=== PATIENT | female | born 1960 | race African-American/Black ===

== ENCOUNTER 2019-03-16 11:52 | Inpatient (IN) | payer MEDICAID ==
[~2019-03-16] VITALS: Ht 162.6 cm; Wt 88.9 kg
[~2019-03-16 11:52] MED LIST: ARNUITY; ASPI-986 PO; DILT60TA35 PO; FAMO-135 PO; GLIP5TAB12 MT; HYDR-4133 PO; INSU100I28 SQ; LORA10CA PO; LOSA50TA3 PO; METF-416 MT; PROXETINE PO; RISP2TAB22 MT; SIMV20TA6 MT; TRAZ150T78 MT; [UNRECOGNIZED DRUG - OTHER] INH
[2019-03-16] MEDS ORDERED: ALBUTEROL (0.083%) 2.5MG/3ML NEB HHN STA (12:18)
[2019-03-16] MEDS ORDERED: METHYLPREDNISOLONE SOD SUCC 125 MG/2 ML VIAL IV STA (12:18)
[2019-03-16 14:07] LABS: HEMATOCRIT. 39.3 % (36.0-48.0); HEMOGLOBIN. 13.2 g/dL (12.0-16.0); MEAN CORPUSCULAR HEMOGLOBIN 31.3 pg (28.0-32.0); MEAN CORPUSCULAR VOLUME 92.8 fL (81.0-99.0); RED BLOOD CELL COUNT 4.24 mill/uL (4.2-5.4); RED CELL DISTRIBUTION WIDTH 14.3 % (11.6-14.6)
[2019-03-16 14:17] LABS: CHLORIDE 106 mEq/L (98-107)
[2019-03-16] MEDS ORDERED: ALBUTEROL (0.083%) 2.5MG/3ML NEB HHN ONE (15:30)
[2019-03-16 15:57] LABS: MEAN PLATELET VOLUME 10.7 fl (7.4-10.4); PLATELET 140 x1000/uL (130-400)
[2019-03-16 16:00] LABS: PLATELET ESTIMATE NORMAL
[2019-03-16 20:35] VITALS: BP 183/75
[2019-03-16] MEDS ORDERED: B50 MT (21:50)
[2019-03-16] MEDS ORDERED: DOCUSATE SODIUM 100MG CAPSULE PO PRN (22:00)
[2019-03-16] MEDS ORDERED: MAGNESIUM/ALUMINUM HYDROXIDE/SIMETHICONE 30ML UDC PO PRN (22:00)
[2019-03-16] MEDS ORDERED: IPRATROPIUM/ALBUTEROL 0.5-3(2.5)MG/3ML NEB NEB PRN (22:00)
[2019-03-16] MEDS ORDERED: HYDRALAZINE 20MG/ML VIAL IV PRN (22:00)
[2019-03-16] MEDS ORDERED: HYDROCODONE/ACETAMINOPHEN 5/325MG TABLET PO PRN (22:00)
[2019-03-16] MEDS ORDERED: METHYLPREDNISOLONE SOD SUCC 40 MG/ML VIAL IV SCH (22:00)
[2019-03-16] MEDS ORDERED: ONDANSETRON HCL 4MG/2ML INJ IV PRN (22:00)
[2019-03-16] MEDS ORDERED: DEXTROSE 50% WATER 50ML SYRINGE IV PRN (22:00)
[2019-03-16] MEDS ORDERED: ACETAMINOPHEN 325MG TABLET PO PRN (22:00)
[2019-03-16] MEDS ORDERED: CLONIDINE 0.1MG TABLET PO PRN (22:00)
[2019-03-16] MEDS: GUAIFENESIN 200MG/10ML SUGAR FREE UDC PO PRN (22:04)
[2019-03-16] MEDS: OMEPRAZOLE 20MG CAPSULE EXTENDED RELEASE PO SCH (22:04)
[2019-03-16 22:32] LABS: BG BASE EXCESS 2.3 mmol/L (-2.0-2.0); BG CARBOXYHEMOGLOBIN 1.8 % (0.5-1.5); BG DEOXYHEMOGLOBIN 6.5 % (0.0-5.0); BG FRACTION INSPIRED OXYGEN 36; BG METHEMOGLOBIN 0.2 % (0.0-1.5); BG OXYGEN SATURATION 93.4 % (92.0-98.5); BG OXYHEMOGLOBIN 91.5 % (94.0-97.0); BG PCO2 60.1 mmHg (35.0-45.0); BG PH 7.316 (7.350-7.450); BG PO2 71.3 mmHg (75.0-100.0); BG SAMPLE SITE RIGHT RADIAL; BG TOTAL HEMOGLOBIN 13.8 g/dL (12.0-18.0); BG VENT MODE NASAL CANNULA
[2019-03-16 23:00] VITALS: BP 167/101
[2019-03-17] VITALS (12 sets, daily range): BP systolic 91–144; BP diastolic 61–99
[2019-03-17 00:29] LABS: CHLORIDE 103 mEq/L (98-107)
[2019-03-17] MEDS: ENOXAPARIN 40MG/0.4ML SYR SUBCUT SCH ×2 (00:29→21:02)
[2019-03-17 00:38] LABS: CREATINE KINASE 188 IU/L (26-192)
[2019-03-17 00:40] LABS: CREATINE KINASE MB FRACTION 1.3 ng/mL (0.5-3.6)
[2019-03-17] MEDS: IPRATROPIUM/ALBUTEROL 0.5-3(2.5)MG/3ML NEB NEB SCH ×6 (00:56→20:13)
[2019-03-17] MEDS: BLOOD SUGAR DIAGNOSTIC STRIP TEST SCH ×4 (07:34→21:27)
[2019-03-17 08:31] LABS: HEMATOCRIT. 37.4 % (36.0-48.0); HEMOGLOBIN. 12.4 g/dL (12.0-16.0); MEAN CORPUSCULAR HEMOGLOBIN 30.5 pg (28.0-32.0); MEAN CORPUSCULAR VOLUME 92.2 fL (81.0-99.0); MEAN PLATELET VOLUME 10.4 fl (7.4-10.4); PLATELET 168 x1000/uL (130-400); RED BLOOD CELL COUNT 4.06 mill/uL (4.2-5.4); RED CELL DISTRIBUTION WIDTH 13.9 % (11.6-14.6)
[2019-03-17 09:04] LABS: LDL CHOLESTEROL 68 mg/dL (5-100)
[2019-03-17] MEDS: OMEPRAZOLE 20MG CAPSULE EXTENDED RELEASE PO SCH (09:04)
[2019-03-17] MEDS: INSULIN LISPRO 100 UNITS/ML SUBCUT SCH ×4 (09:05→21:48)
[2019-03-17 09:06] LABS: CREATINE KINASE 153 IU/L (26-192)
[2019-03-17 09:07] LABS: HDL CHOLESTEROL 57 mg/dL (40-59)
[2019-03-17 09:09] LABS: CREATINE KINASE MB FRACTION 1.1 ng/mL (0.5-3.6)
[2019-03-17 11:21] LABS: BG BASE EXCESS 5.2 mmol/L (-2.0-2.0); BG BILEVEL POS AIRWAY PRESSURE 15/5; BG CARBOXYHEMOGLOBIN 0.6 % (0.5-1.5); BG DEOXYHEMOGLOBIN 2.6 % (0.0-5.0); BG FRACTION INSPIRED OXYGEN 50; BG HCO3 ACT 33.4 mmol/L (22.0-26.0); BG METHEMOGLOBIN 0.2 % (0.0-1.5); BG OXYGEN SATURATION 97.4 % (92.0-98.5); BG OXYHEMOGLOBIN 96.6 % (94.0-97.0); BG PCO2 67.5 mmHg (35.0-45.0); BG PH 7.312 (7.350-7.450); BG PO2 112.9 mmHg (75.0-100.0); BG SAMPLE SITE RIGHT RADIAL; BG TOTAL HEMOGLOBIN 12.7 g/dL (12.0-18.0); BG VENT MODE MASK - BIPAP
[2019-03-17] MEDS ORDERED: TERBUTALINE SULFATE 1MG/ML VIAL SUBCUT NR (12:20)
[2019-03-17] MEDS: METHYLPREDNISOLONE SOD SUCC 125 MG/2 ML VIAL IV SCH ×2 (12:51→17:46)
[2019-03-17] MEDS ORDERED: NICOTINE 21MG PATCH TD NR (13:00)
[2019-03-17] MEDS: FLUTICASONE PROPIONATE 50MCG/SPRAY BOTTLE BOTHNSTRLS SCH ×2 (13:52→21:01)
[2019-03-17 16:20] LABS: CLARITY URINE CLOUDY (CLEAR); COLOR URINE YELLOW (YELLOW); KETONES URINE 1+ (NEGATIVE); LEUKOCYTE ESTERASE URINE NEGATIVE (NEGATIVE); NITRITE URINE NEGATIVE (NEGATIVE); OCCULT BLOOD URINE NEGATIVE (NEGATIVE); PH URINE 5.5 (4.5-8.0); PROTEIN URINE NEGATIVE (NEGATIVE); SPECIFIC GRAVITY URINE 1.024 (1.005-1.030)
[2019-03-17 16:31] LABS: *AMPHETAMINES SCREEN URINE NEGATIVE (NEGATIVE)
[2019-03-17 16:32] LABS: *BARBITURATES SCREEN URINE NEGATIVE (NEGATIVE); *BENZODIAZEPINES SCREEN URINE NEGATIVE (NEGATIVE); *COCAINE SCREEN URINE NEGATIVE (NEGATIVE); METHADONE URINE SCREEN NEGATIVE (NEGATIVE); OPIATES URINE SCREEN NEGATIVE (NEGATIVE); PHENCYCLIDINE URINE SCREEN NEGATIVE (NEGATIVE)
[2019-03-17 16:33] LABS: CANNABINOID URINE SCREEN NEGATIVE (NEGATIVE)
[2019-03-17] MEDS: MONTELUKAST SODIUM 10MG TABLET PO SCH (17:46)
[2019-03-17] MEDS: GUAIFENESIN 200MG/10ML SUGAR FREE UDC PO PRN (21:03)
[2019-03-17 22:58] LABS: PLATELET ESTIMATE NORMAL
[2019-03-18] VITALS (12 sets, daily range): BP systolic 120–153; BP diastolic 60–80
[2019-03-18] MEDS: IPRATROPIUM/ALBUTEROL 0.5-3(2.5)MG/3ML NEB NEB SCH ×7 (00:19→23:58)
[2019-03-18] MEDS: METHYLPREDNISOLONE SOD SUCC 125 MG/2 ML VIAL IV SCH ×4 (00:37→17:48)
[2019-03-18] MEDS: INSULIN LISPRO 100 UNITS/ML SUBCUT SCH ×4 (06:15→22:19)
[2019-03-18 07:32] LABS: HEMATOCRIT. 37.1 % (36.0-48.0); HEMOGLOBIN. 12.3 g/dL (12.0-16.0); MEAN CORPUSCULAR HEMOGLOBIN 30.5 pg (28.0-32.0); MEAN CORPUSCULAR VOLUME 92.4 fL (81.0-99.0); MEAN PLATELET VOLUME 10.3 fl (7.4-10.4); PLATELET 160 x1000/uL (130-400); RED BLOOD CELL COUNT 4.01 mill/uL (4.2-5.4)
[2019-03-18] MEDS: BLOOD SUGAR DIAGNOSTIC STRIP TEST SCH ×4 (07:42→21:42)
[2019-03-18 07:43] LABS: CHLORIDE 99 mEq/L (98-107)
[2019-03-18] MEDS: OMEPRAZOLE 20MG CAPSULE EXTENDED RELEASE PO SCH (07:46)
[2019-03-18] MEDS: NICOTINE 21MG PATCH TD SCH (08:27)
[2019-03-18] MEDS: FLUTICASONE PROPIONATE 50MCG/SPRAY BOTTLE BOTHNSTRLS SCH ×2 (08:27→22:17)
[2019-03-18] MEDS: GUAIFENESIN 200MG/10ML SUGAR FREE UDC PO PRN (11:27)
[2019-03-18] MEDS ORDERED: INSULIN LISPRO 100 UNITS/ML SUBCUT SCH (12:30)
[2019-03-18 17:25] LABS: PLATELET ESTIMATE NORMAL
[2019-03-18] MEDS: MONTELUKAST SODIUM 10MG TABLET PO SCH (17:48)
[2019-03-18] MEDS: ENOXAPARIN 40MG/0.4ML SYR SUBCUT SCH (22:16)
[2019-03-18] MEDS: INSULIN GLARGINE UD 100 UNITS/ML SYR SUBCUT SCH (22:20)
[2019-03-19] VITALS (12 sets, daily range): BP systolic 124–164; BP diastolic 55–118
[2019-03-19] MEDS: METHYLPREDNISOLONE SOD SUCC 125 MG/2 ML VIAL IV SCH ×3 (00:18→12:29)
[2019-03-19] MEDS: IPRATROPIUM/ALBUTEROL 0.5-3(2.5)MG/3ML NEB NEB SCH ×6 (00:36→19:45)
[2019-03-19 06:21] LABS: HEMOGLOBIN. 12.1 g/dL (12.0-16.0); MEAN CORPUSCULAR HEMOGLOBIN 30.4 pg (28.0-32.0); MEAN CORPUSCULAR VOLUME 92.6 fL (81.0-99.0); MEAN PLATELET VOLUME 10.5 fl (7.4-10.4); PLATELET 156 x1000/uL (130-400); RED CELL DISTRIBUTION WIDTH 14.4 % (11.6-14.6)
[2019-03-19 06:24] LABS: CHLORIDE 99 mEq/L (98-107)
[2019-03-19] MEDS: BLOOD SUGAR DIAGNOSTIC STRIP TEST SCH ×4 (07:52→21:56)
[2019-03-19] MEDS: FAMOTIDINE 20MG TABLET PO SCH ×2 (08:34→21:49)
[2019-03-19] MEDS: FLUTICASONE PROPIONATE 50MCG/SPRAY BOTTLE BOTHNSTRLS SCH ×2 (08:34→21:49)
[2019-03-19] MEDS: NICOTINE 21MG PATCH TD SCH (08:34)
[2019-03-19] MEDS: INSULIN LISPRO 100 UNITS/ML SUBCUT SCH ×4 (08:36→21:00)
[2019-03-19 10:14] LABS: PLATELET ESTIMATE NORMAL
[2019-03-19] MEDS: INSULIN GLARGINE UD 100 UNITS/ML SYR SUBCUT SCH ×2 (10:42→21:56)
[2019-03-19] MEDS: GUAIFENESIN 200MG/10ML SUGAR FREE UDC PO PRN ×2 (13:17→22:53)
[2019-03-19] MEDS: MONTELUKAST SODIUM 10MG TABLET PO SCH (16:41)
[2019-03-19] MEDS: GUAIFENESIN 600MG ER TABLET PO SCH (16:41)
[2019-03-19] MEDS: ENOXAPARIN 40MG/0.4ML SYR SUBCUT SCH (21:50)
[2019-03-19] MEDS: METHYLPREDNISOLONE SOD SUCC 40 MG/ML VIAL IV SCH (21:50)
[2019-03-20] VITALS (11 sets, daily range): BP systolic 122–154; BP diastolic 66–109
[2019-03-20] MEDS: IPRATROPIUM/ALBUTEROL 0.5-3(2.5)MG/3ML NEB NEB SCH ×5 (00:36→17:10)
[2019-03-20] MEDS: METHYLPREDNISOLONE SOD SUCC 40 MG/ML VIAL IV SCH ×2 (05:21→13:07)
[2019-03-20] MEDS: GUAIFENESIN 200MG/10ML SUGAR FREE UDC PO PRN ×3 (06:39→17:10)
[2019-03-20] MEDS: INSULIN LISPRO 100 UNITS/ML SUBCUT SCH ×3 (08:00→17:12)
[2019-03-20] MEDS: BLOOD SUGAR DIAGNOSTIC STRIP TEST SCH ×3 (08:15→17:01)
[2019-03-20] MEDS: NICOTINE 21MG PATCH TD SCH (09:17)
[2019-03-20] MEDS: FAMOTIDINE 20MG TABLET PO SCH (09:17)
[2019-03-20] MEDS: FLUTICASONE PROPIONATE 50MCG/SPRAY BOTTLE BOTHNSTRLS SCH (09:17)
[2019-03-20] MEDS: GUAIFENESIN 600MG ER TABLET PO SCH (09:17)
[2019-03-20] MEDS: INSULIN GLARGINE UD 100 UNITS/ML SYR SUBCUT SCH (10:53)
[2019-03-20] MEDS ORDERED: ATROV INH (16:05)
[2019-03-20] MEDS ORDERED: NICO-682 TD (16:05)
[2019-03-20] MEDS ORDERED: FAMO20TA8 PO (16:05)
[2019-03-20] MEDS ORDERED: DEXTL MT (16:05)
[2019-03-20] MEDS ORDERED: FLUT1DIS2 INH (16:05)
[2019-03-20] MEDS ORDERED: PANT20TA3 MT (16:05)
[2019-03-20] MEDS ORDERED: MONT10TA21 PO (16:05)
[2019-03-20] MEDS ORDERED: ALBU18HF2 IH (16:05)
[2019-03-20] MEDS ORDERED: P20 MT (16:05)
[2019-03-20] MEDS: MONTELUKAST SODIUM 10MG TABLET PO SCH (17:10)
== END 2019-03-20 18:10 | disposition home or self-care (01) | DRG 140 ==
LOC: ER 12:18 → 5WST 17:30 → EDBEDREQ 17:31 → ENRESERV 18:14 → 5EST 22:45
PROVIDERS: ADMIT Internal Medicine; ATTEND Internal Medicine
DX: J44.1 Chronic obstructive pulmonary disease with (acute) exacerbation (principal); J96.00 Acute respiratory failure, unspecified whether with hypoxia or hypercapnia; E87.2 Acidosis; E11.9 Type 2 diabetes mellitus without complications; J00 Acute nasopharyngitis [common cold]; M19.90 Unspecified osteoarthritis, unspecified site; Z99.81 Dependence on supplemental oxygen; I10 Essential (primary) hypertension; I34.1 Nonrheumatic mitral (valve) prolapse; J40 Bronchitis, not specified as acute or chronic
CPT/HCPCS: 36415; 36600; 71045; 80048; 80061; 80305; 81003; 82375; 82550; 82553; 82805; 82962; 83735; 83880; 84443; 84484; 93005; 93970; 94640; 94660; 96374; 99285; J0360; J1650; J1815; J2920; J2930; J3105; J7611; J7620

== ENCOUNTER 2024-07-26 17:26 | Emergency (ER) | payer OTHER ==
[~2024-07-26] VITALS: Ht 167.6 cm; Wt 70.0 kg
[~2024-07-26 17:26] MED LIST changes: +ALBU18HF2 IH; -ARNUITY; +ATROV INH; +B50 MT; +DEXTL MT; +EMPA10TA PO; -FAMO-135 PO; +FAMO20TA8 PO; +FLUT1DIS2 INH; -GLIP5TAB12 MT; +HYDR-2988 PO; -HYDR-4133 PO; -LORA10CA PO; +LOSA-413 PO; -LOSA50TA3 PO; +MONT-46 PO; +NICO-789 TD; +P20 MT; +PARO-41 PO; -PROXETINE PO; +RISP-29 MT; -RISP2TAB22 MT; +SIMV-43 MT; -SIMV20TA6 MT; -[UNRECOGNIZED DRUG - OTHER] INH
[2024-07-26 17:31] VITALS: O2SAT 99
[2024-07-26] MEDS: METHYLPREDNISOLONE SOD SUCC 125MG/2ML (ACT-O-VIAL) IV STA (18:21)
[2024-07-26 18:32] LABS: CHLORIDE 103 mEq/L (98-107); POTASSIUM 4.1 mEq/L (3.5-5.1); SODIUM 139 mEq/L (136-145)
[2024-07-26 18:33] LABS: CARBON DIOXIDE 27 mEq/L (21-32)
[2024-07-26 18:34] LABS: CALCIUM 9.3 mg/dL (8.7-10.4)
[2024-07-26 18:35] LABS: BASOPHILS % 0.7 % (0.0-2.0); EOSINOPHILS % 5.4 % (0.0-5.0); HEMATOCRIT. 35.6 % (36.0-48.0); HEMOGLOBIN. 11.6 g/dL (12.0-16.0); LYMPHOCYTES % 28.4 % (20.0-50.0); MEAN CORPUSCULAR HEMOGLOBIN 29.6 pg (28.0-32.0); MEAN CORPUSCULAR HGB CONC 32.6 g/dL (31.0-37.0); MEAN PLATELET VOLUME 9.3 fl (7.4-10.4); MONOCYTES % 12.4 % (2.0-8.0); NEUTROPHILS % 53.1 % (40.0-76.0); PLATELET 212 x1000/uL (130-400); RED BLOOD CELL COUNT 3.91 mill/uL (4.2-5.4); RED CELL DISTRIBUTION WIDTH 13.6 % (11.6-14.6); WHITE BLOOD COUNT 6.8 x1000/uL (4.5-11.0)
[2024-07-26 18:38] LABS: CREATININE 0.8 mg/dL (0.6-1.0); GLUCOSE 175 mg/dL (70-105); UREA NITROGEN BLOOD 9 mg/dL (9-23)
[2024-07-26 18:40] LABS: TROPONIN I HIGH SENSITIVITY < 4 ng/L (3.0-34)
[2024-07-26] MEDS: IOHEXOL-300 100 ML BOTTLE ONE (20:56)
[2024-07-26 21:14] VITALS: TEMP 36.94740
[2024-07-26 21:51] LABS: ALANINE AMINOTRANSFERASE 11 IU/L (10-49); ALBUMIN 4.3 g/dL (3.2-4.8); ASPARTATE AMINOTRANSFERASE 16 IU/L (<34); BILIRUBIN TOTAL 0.3 mg/dL (0.1-1.0)
[2024-07-26 21:55] LABS: BILIRUBIN DIRECT < 0.1 mg/dL (<=3.0); TROPONIN I HIGH SENSITIVITY < 4 ng/L (3.0-34)
[2024-07-26 23:20] VITALS: BP 171/82; PULSE 86; RESP 21; O2SAT 98
[2024-07-26] MEDS: IPRATROPIUM/ALBUTEROL 0.5-3(2.5)MG/3ML NEB HHN ONE (23:41)
== END 2024-07-27 00:28 | disposition short-term general hospital (02) ==
LOC: ER 17:26
DX: J44.89 Other specified chronic obstructive pulmonary disease (principal); K80.50 Calculus of bile duct without cholangitis or cholecystitis without obstruction; I10 Essential (primary) hypertension; E11.9 Type 2 diabetes mellitus without complications; Z90.49 Acquired absence of other specified parts of digestive tract; Z88.0 Allergy status to penicillin; Z79.84 Long term (current) use of oral hypoglycemic drugs; Z79.899 Other long term (current) drug therapy; Z79.82 Long term (current) use of aspirin; Z79.51 Long term (current) use of inhaled steroids; Z79.4 Long term (current) use of insulin
CPT/HCPCS: 80076; 80048; 83880; 85025; 84484; 36415; 71045; 74177; 93005; 96374; 99285; Q9967; J2919; Z7610 ×2